=== PATIENT | female | born 2005 | race Hispanic/Latino ===

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

== ENCOUNTER 2023-08-03 08:59 | Observation (INO) | payer MEDICAID ==
[~2023-08-03] VITALS: Ht 160 cm; Wt 85.7 kg
[2023-08-03 09:04] VITALS: BP 129/59; PULSE 89; RESP 16; O2SAT 100
[2023-08-03] MEDS ORDERED: CITRIC ACID/SODIUM CITRATE 30 ML UDCUP PO SCH (10:00)
[2023-08-03] MEDS ORDERED: LACTATED RINGERS 1000ML 1,000 ML IV SCH (10:00)
[2023-08-03 10:09] LABS: HEMATOCRIT 35.3 % (36-48); MEAN CORPUSCULAR HGB CONC 32.6 g/dL (32.0-36.0); MEAN CORPUSCULAR VOLUME 85.9 fL (80-100); RED BLOOD CELL COUNT(AUTO) 4.11 MIL/uL (4.00-5.50); RED CELL DISTRIBUTION WIDTH 13.8 % (11.0-15.5); WHITE BLOOD COUNT (AUTO) 11.9 K/uL (4.8-10.8)
[2023-08-03 10:19] LABS: ADD UA MICROSCOPIC YES; APPEARANCE,URINE CLOUDY (CLEAR); BILIRUBIN,URINE NEGATIVE (NEGATIVE); COLOR,URINE YELLOW (YELLOW); GLUCOSE, URINE (UA) NEGATIVE (NEGATIVE); KETONES,URINE NEGATIVE (NEGATIVE); LEUKOCYTE ESTERASE ,URINE 25 Leu/uL (NEGATIVE); NITRATE,URINE NEGATIVE (NEGATIVE); OCCULT BLOOD,URINE NEGATIVE (NEGATIVE); PROTEIN,URINE 10 mg/dL (NEGATIVE)
[2023-08-03 10:33] LABS: BACTERIA,URINE RARE /HPF (None Seen); MUCUS,URINE RARE LPF (None Seen); SQUAMOUS EPITHELIAL CELL,UR FEW /HPF (0-2)
== END 2023-08-03 11:14 | disposition home or self-care (01) ==
LOC: EDH 08:59 → LDH 09:00
PROVIDERS: ADMIT Obstetrics & Gynecology; ATTEND Obstetrics & Gynecology
DX: O21.2 Late vomiting of pregnancy (principal); O26.893 Other specified pregnancy related conditions, third trimester; R10.13 Epigastric pain; Z3A.30 30 weeks gestation of pregnancy
CPT/HCPCS: 96360; 85027; 81001; 36415; 76705; G0378 ×2; J7120

== ENCOUNTER 2023-08-25 02:45 | Observation (INO) | payer MEDICAID ==
[~2023-08-25] VITALS: Ht 157.5 cm; Wt 88.5 kg
[2023-08-25 02:48] VITALS: RESP 20
[2023-08-25 03:24] VITALS: BP 116/62
[2023-08-25] MEDS ORDERED: LACTATED RINGERS 1000ML IV PRN (03:30)
== END 2023-08-25 04:38 | disposition home or self-care (01) ==
LOC: EDH 02:45 → LDH 02:46
PROVIDERS: ADMIT Obstetrics & Gynecology; ATTEND Obstetrics & Gynecology
DX: O36.8130 Decreased fetal movements, third trimester, not applicable or unspecified (principal); O21.2 Late vomiting of pregnancy; O26.893 Other specified pregnancy related conditions, third trimester; R10.13 Epigastric pain; Z3A.34 34 weeks gestation of pregnancy
CPT/HCPCS: 96360; 76819; G0378 ×2; G0379; J7120

== ENCOUNTER 2023-08-25 15:42 | Observation (INO) | payer MEDICAID ==
[2023-08-25] MEDS ORDERED: MEPERIDINE-PF 50 MG/ML SYG IM PRN (17:00)
[2023-08-25] MEDS ORDERED: PROMETHAZINE HCL 25 MG/ML 1ML AMPULE IM PRN (17:00)
[2023-08-25 17:17] LABS: BASOPHILS # (AUTO) 0.04 K/uL (0.00-0.20); BASOPHILS % (AUTO) 0.2 % (0.0-5.0); EOSINOPHILS # (AUTO) 0.01 K/uL (0.00-0.70); EOSINOPHILS % (AUTO) 0.1 % (0.0-8.0); HEMATOCRIT 38.2 % (36-48); IMMATURE GRANULOCYTE ABSOLUTE 0.19 K/uL (0-1); LYMPHOCYTES # (AUTO) 2.1 K/uL (1.0-4.8); LYMPHOCYTES % (AUTO) 12.4 % (21.0-51.0); MEAN CORPUSCULAR HEMOGLOBIN 27.9 pg (27.0-33.0); MEAN CORPUSCULAR HGB CONC 32.5 g/dL (32.0-36.0); MEAN CORPUSCULAR VOLUME 85.8 fL (80-100); MONOCYTES # (AUTO) 1.1 K/uL (0.1-1.0); MONOCYTES % (AUTO) 6.5 % (3.0-13.0); NEUTROPHILS # (AUTO) 13.2 K/uL (1.8-7.7); NEUTROPHILS % (AUTO) 79.7 % (40.0-77.0); PLATELET COUNT (AUTO) 471 K/uL (130-400); RED BLOOD CELL COUNT(AUTO) 4.45 MIL/uL (4.00-5.50); RED CELL DISTRIBUTION WIDTH 14.4 % (11.0-15.5); WHITE BLOOD COUNT (AUTO) 16.6 K/uL (4.8-10.8)
[2023-08-25] MEDS ORDERED: PANTOPRAZOLE 40 MG/VIAL ONE (17:34)
[2023-08-25 17:35] LABS: ALBUMIN 2.5 g/dL (3.5-5.0); BILIRUBIN,DIRECT 0.4 mg/dL (0.0-0.3); BILIRUBIN,TOTAL 0.9 mg/dL (0.2-1.0)
[2023-08-25 19:22] VITALS: BP 109/70; PULSE 88; RESP 18
[2023-08-25] MEDS ORDERED: FLU VACC QS2022-23(6MOS UP)/PF 60 MCG/0.5 ML ML IM ONE (19:30)
[2023-08-25] MEDS: LACTATED RINGERS 1000ML 1,000 ML IV PRN (20:00)
[2023-08-25 22:38] LABS: APPEARANCE,URINE CLEAR (CLEAR); BILIRUBIN,URINE NEGATIVE (NEGATIVE); COLOR,URINE YELLOW (YELLOW); GLUCOSE, URINE (UA) NEGATIVE (NEGATIVE); KETONES,URINE 150 mg/dL (NEGATIVE); LEUKOCYTE ESTERASE ,URINE NEGATIVE Leu/uL (NEGATIVE); NITRATE,URINE NEGATIVE (NEGATIVE); OCCULT BLOOD,URINE NEGATIVE (NEGATIVE); PH,URINE 5.5 (5.0-8.0); PROTEIN,URINE NEGATIVE (NEGATIVE); UROBILINOGEN,URINE 0.2 mg/dL (0.2-1.0)
[2023-08-25 22:42] LABS: ADD UA MICROSCOPIC YES
[2023-08-25 22:43] LABS: MUCUS,URINE RARE LPF (None Seen); SQUAMOUS EPITHELIAL CELL,UR RARE /HPF (0-2)
[2023-08-25 23:27] VITALS: BP 96/46; PULSE 92; RESP 18
[2023-08-26] MEDS: LACTATED RINGERS 1000ML 1,000 ML IV PRN ×3 (02:57→17:48)
[2023-08-26 03:44] VITALS: BP 89/60; PULSE 94; RESP 18
[2023-08-26 07:46] VITALS: BP 109/68; PULSE 88; RESP 16
[2023-08-26] MEDS: PANTOPRAZOLE 40 MG/VIAL IVP SCH (08:23)
[2023-08-26 11:45] VITALS: BP 95/58; PULSE 96; RESP 18
[2023-08-26 15:46] VITALS: BP 102/56; PULSE 98; RESP 17
[2023-08-26 19:30] VITALS: BP 107/67; PULSE 106; RESP 18
[2023-08-26 22:53] VITALS: BP 105/64; PULSE 97; RESP 18
[2023-08-27] MEDS: LACTATED RINGERS 1000ML 1,000 ML IV PRN ×2 (00:45→07:20)
[2023-08-27 03:24] VITALS: BP 118/42; PULSE 98; RESP 18
[2023-08-27 06:40] LABS: BASOPHILS # (AUTO) 0.04 K/uL (0.00-0.20); BASOPHILS % (AUTO) 0.3 % (0.0-5.0); EOSINOPHILS % (AUTO) 0.8 % (0.0-8.0); HEMATOCRIT 33.5 % (36-48); IMMATURE GRANULOCYTE ABSOLUTE 0.24 K/uL (0-1); LYMPHOCYTES # (AUTO) 2.1 K/uL (1.0-4.8); LYMPHOCYTES % (AUTO) 17.1 % (21.0-51.0); MEAN CORPUSCULAR HEMOGLOBIN 27.6 pg (27.0-33.0); MEAN CORPUSCULAR HGB CONC 32.2 g/dL (32.0-36.0); MEAN CORPUSCULAR VOLUME 85.5 fL (80-100); MONOCYTES # (AUTO) 0.9 K/uL (0.1-1.0); MONOCYTES % (AUTO) 7.1 % (3.0-13.0); NEUTROPHILS # (AUTO) 9.1 K/uL (1.8-7.7); NEUTROPHILS % (AUTO) 72.8 % (40.0-77.0); PLATELET COUNT (AUTO) 363 K/uL (130-400); RED BLOOD CELL COUNT(AUTO) 3.92 MIL/uL (4.00-5.50); RED CELL DISTRIBUTION WIDTH 14.6 % (11.0-15.5); WHITE BLOOD COUNT (AUTO) 12.5 K/uL (4.8-10.8)
[2023-08-27 07:14] LABS: ALBUMIN 2.2 g/dL (3.5-5.0); BILIRUBIN,DIRECT 0.2 mg/dL (0.0-0.3); BILIRUBIN,TOTAL 0.6 mg/dL (0.2-1.0)
[2023-08-27 07:36] VITALS: BP 106/65; PULSE 97
[2023-08-27] MEDS: PANTOPRAZOLE 40 MG/VIAL IVP SCH (08:17)
[2023-08-27] MEDS ORDERED: FLU VACC QS2023-24(6MOS UP)/PF 60 MCG/0.5 ML IM ONE (09:59)
== END 2023-08-27 10:46 | disposition home or self-care (01) ==
LOC: LDH 15:42 → WSH 18:05
PROVIDERS: ADMIT Obstetrics & Gynecology; ATTEND Obstetrics & Gynecology
DX: O36.8130 Decreased fetal movements, third trimester, not applicable or unspecified (principal); O26.893 Other specified pregnancy related conditions, third trimester; R10.13 Epigastric pain; Z3A.34 34 weeks gestation of pregnancy; Z23 Encounter for immunization
CPT/HCPCS: 96372; 96361 ×3; 82150 ×2; 80076 ×2; 83690 ×2; 85025 ×2; 81001; 36415 ×2; 76819; 96374; 96376; 59025; 90658; 90471; G0378 ×45; G0379; J2550; S0164 ×4; J2175; J7120 ×5; 96360; C9113; Q2035; Q2038

== ENCOUNTER 2023-09-14 08:22 | Observation (INO) | payer MEDICAID ==
[~2023-09-14] VITALS: Ht 157.5 cm; Wt 86.6 kg
[2023-09-14 09:20] LABS: ADD UA MICROSCOPIC YES; APPEARANCE,URINE CLOUDY (CLEAR); BACTERIA,URINE RARE /HPF (None Seen); BILIRUBIN,URINE NEGATIVE (NEGATIVE); COLOR,URINE YELLOW (YELLOW); GLUCOSE, URINE (UA) NEGATIVE (NEGATIVE); KETONES,URINE >=80 mg/dL (NEGATIVE); LEUKOCYTE ESTERASE ,URINE 500 Leu/uL (NEGATIVE); MUCUS,URINE RARE LPF (None Seen); NITRATE,URINE NEGATIVE (NEGATIVE); OCCULT BLOOD,URINE NEGATIVE (NEGATIVE); PROTEIN,URINE 30 mg/dL (NEGATIVE); SQUAMOUS EPITHELIAL CELL,UR MOD /HPF (0-2)
[2023-09-14] MEDS ORDERED: MEPERIDINE-PF 50 MG/ML SYG IVP PRN (10:30)
[2023-09-14] MEDS ORDERED: PROMETHAZINE HCL 25 MG/ML 1ML AMPULE IM PRN (10:30)
[2023-09-14] MEDS: LACTATED RINGERS 1000ML IV SCH ×3 (10:55→13:11)
[2023-09-14 12:38] LABS: AMYLASE 32 U/L (25-115); CHOLESTEROL 164 mg/dL (<200); HDL CHOLESTEROL 64 mg/dL (35-85); LDL DIRECT 90 mg/dL (0-99); TRIGLYCERIDES 109 mg/dL (30-200)
[2023-09-14 13:23] LABS: CREATININE 0.5 mg/dL (0.5-1.5); POTASSIUM 3.9 mmol/L (3.5-5.1)
[2023-09-14 13:26] LABS: ALBUMIN 2.2 g/dL (3.5-5.0); BILIRUBIN,TOTAL 0.4 mg/dL (0.2-1.0); TOTAL PROTEIN, SERUM 6.3 g/dL (6.0-8.3)
[2023-09-14 14:37] LABS: APPEARANCE,URINE CLEAR (CLEAR); BILIRUBIN,URINE NEGATIVE (NEGATIVE); COLOR,URINE YELLOW (YELLOW); GLUCOSE, URINE (UA) NEGATIVE (NEGATIVE); KETONES,URINE >=80 mg/dL (NEGATIVE); LEUKOCYTE ESTERASE ,URINE NEGATIVE Leu/uL (NEGATIVE); NITRATE,URINE NEGATIVE (NEGATIVE); OCCULT BLOOD,URINE NEGATIVE (NEGATIVE); PROTEIN,URINE 10 mg/dL (NEGATIVE); UROBILINOGEN,URINE 0.2 mg/dL (0.2-1.0)
[2023-09-14 14:39] LABS: ADD UA MICROSCOPIC YES
[2023-09-14 14:41] LABS: MUCUS,URINE RARE LPF (None Seen); RBC,URINE 0-1 /HPF (0-1); SQUAMOUS EPITHELIAL CELL,UR RARE /HPF (0-2); WBC,URINE 0-1 /HPF (0-1)
[2023-09-17] MEDS ORDERED: PREN-154 PO (04:13)
== END 2023-09-14 16:35 | disposition home or self-care (01) ==
LOC: LDH 08:22 → INTOOBSV 08:27 → OBSVTOIN 08:27
PROVIDERS: ADMIT Obstetrics & Gynecology; ATTEND Obstetrics & Gynecology
DX: O26.893 Other specified pregnancy related conditions, third trimester (principal); K82.9 Disease of gallbladder, unspecified; R10.13 Epigastric pain; Z79.899 Other long term (current) drug therapy; Z3A.36 36 weeks gestation of pregnancy
CPT/HCPCS: 96374; 96372; 96361 ×2; 82150; 80061; 80053; 83690; 87088; 81001 ×2; 36415; G0378 ×8; G0379; J2550; J2175; J7120; 96360